=== PATIENT | male | born 1990 | race African-American/Black ===

== ENCOUNTER 2021-09-02 08:15 | Emergency (ER) | payer OTHER ==
--- NOTE | 2021-09-02 08:33 | ED Physician Documentation ---
PD HPI URI - Stated complaint Stated Complaint: COUGH, HEAD PX, BODYACHES - History obtained from History obtained from: Patient, Family - Additional information Additional information: He went to a in [place] and returned about 4 days ago and on return he came sick with cough, headaches, body aches. Multiple sick contacts with COVID. His 2 sons are ill as well and he presents with them for COVID testing with the understanding that he could get rapid testing and return immediately to work. Review of Systems Constitutional: reports: Chills, Myalgias, Fatigue Nose: reports: Rhinorrhea / runny nose, Congestion Throat: reports: Sore throat Respiratory: reports: Cough. denies: Dyspnea PD PAST MEDICAL HISTORY - Past Medical History Past Medical History: No - Allergies Allergies/Adverse Reactions: Allergies Allergy/AdvReac Type Severity Reaction Status Date / Time No Known Drug Allergies Allergy Verified 09/02/21 08:36 PD ED PE NORMAL - Vitals Vital signs reviewed: Yes - General General: Alert and oriented X 3, No acute distress - HEENT HEENT: Ears normal, Pharynx benign - Neck Neck: Supple, no meningeal sign, No bony TTP - Respiratory Respiratory: No respiratory distress, Clear bilaterally - Abdomen Abdomen: Non tender - Neuro Neuro: Alert and oriented X 3, Normal speech - Psych Psych: Normal mood, Normal affect Results - Vitals Vitals: Vital Signs - 24 hr 09/02/21 08:32 Temperature 37 C Heart Rate 88 Respiratory 16 Rate Blood Pressure 142/100 H O2 Saturation 99 Oxygen O2 Source Room air PD MEDICAL DECISION MAKING - ED course ED course: Discussed with him current policies and procedures prevent rapid testing, he will need to quarantine until his COVID PCR is done and he was given a work note for this. Departure - Departure Disposition: 01 Home, Self Care Clinical Impression: Viral syndrome Condition: Stable Instructions: ED Viral Syndrome Comments: You have a Covid test pending. You need to self quarantine until the result is done and negative. Do not leave your house. Do not get near anybody. The re sults should be done in 48 to 72 hours. We will call with a positive result, the fastest way to get a negative result for confirmation though is to go to the hospital website at [email or web address], click on the my [facility] tab and sign up for the patient portal. If any friends or family get sick and would like to have a Covid test done, but do not have signs or symptoms that would necessitate being hospitalized, there are multiple local options for Covid testing. [facility] keeps an updated list of testing and vaccination options at: [email or web address]. Forms: Activity restrictions
[2021-09-02 08:36] VITALS: BP 142/100
== END 2021-09-02 09:17 | disposition home or self-care (01) ==
LOC: ED 08:15
DX: U07.1 COVID-19 (principal); B34.9 Viral infection, unspecified
CPT/HCPCS: 99282; 99283